=== PATIENT | female | born 1980 | race Caucasian/White ===

== ENCOUNTER 2019-11-27 11:33 | Outpatient (CLI) | payer OTHER, SELFPAY ==
--- NOTE | ~2019-11-27 | MM_ITS ---
EXAMINATION: MM screening nitin BI w jluis HISTORY: Screening mammogram TECHNIQUE: Craniocaudal and mediolateral oblique 3-D tomosynthesis images were obtained and synthetic 2-D images were generated. CAD analysis was submitted and interpreted. COMPARISON: 10/19/2018 bilateral digital screening mammogram BREAST PARENCHYMAL COMPOSITION: The breasts are almost entirely fatty. FINDINGS: There is no evidence of suspicious mass, calcification, or architectural distortion to sugg est malignancy in either breast. There has been no suspicious interval change. IMPRESSION: 1. No mammographic evidence of malignancy. 2. Recommend routine screening mammography in one year. BI-RADS Category 1: Negative Reviewed, dictated and finalized at location A. [employer] ATTORNEY
== END 2019-11-27 11:34 | disposition home or self-care (01) ==
LOC: ANHIMG 11:36
PROVIDERS: PCP Nurse Practitioner Family; Visit Provider Nurse Practitioner Family
DX: Z12.31 Encounter for screening mammogram for malignant neoplasm of breast (principal)
CPT/HCPCS: 77063; 77067

== ENCOUNTER 2020-06-30 19:40 | Emergency (ER) | payer OTHER, SELFPAY ==
--- NOTE | ~2020-06-30 | XR_ITS ---
XR hand LT 2V DATE: 06/30/2020 20:21 INDICATION: Table fell on hand. Third through fifth metacarpal bruising, pain TECHNIQUE: 3 views COMPARISON: 02/17/2018 left wrist FINDINGS: No fracture or dislocation, periosteal reaction or bone destruction. IMPRESSION: Negative Reviewed, dictated and finalized at location A. IMPRESSION: Negative
[2020-06-30 19:46] VITALS: BP 141/91; PULSE 96; RESP 19; TEMP 36.4; O2SAT 98
--- NOTE | 2020-06-30 20:32 | ED.UPPEXIN ---
HPI - Extremity Injury (Upper) General Chief Complaint: Extremity Injury, Upper Stated Complaint: arm pain Time Seen by Provider: 06/30/20 20:22 History of Present Illness HPI narrative: She accidentally dropped a table leg onto her left hand. She has pain and swelling to the dorsum of the hand. She has not taken anything for the pain. No wound, weakness, numbness. Related Data Home Medications Medication Instructions Recorded Confirmed citalopram mg 06/30/20 divalproex [Depakote] PO 06/30/20 olanzapine [Zyprexa] mg 06/30/20 Allergies Allergy/AdvReac Type Severity Reaction Status Date / Time ibuprofen Allergy Unknown Unknown Verified 02/17/18 00:14 bupropion AdvReac Unknown dizzy, Verified 02/17/18 00:14 lightheaded red dye AdvReac Unknown Nausea and Unverified 02/17/18 00:14 Vomiting Review of Systems Review of Systems: All systems reviewed & are unremarkable except as noted in HPI and below PMFSH Past Medical History Medical History (Updated 07/01/20 @ 00:00 by Background Daemon) Depression Social History Social History Gender identity (if verbalized by the patient): Female Exam Const: General: no acute distress and alert Nutritional Appearance: obese Orientation/consciousness: patient oriented x3 HENMT: Head: normal to inspection Resp: Effort & Inspection: normal respiratory effort Cardio: Other: 2+ left radial pulse Skin: Other: bruising to the dorsum of the left hand Neuro: General: patient oriented x3 and moves all extremities Speech: normal speech Extrem: Other: Tenderness over left third metatarsal Course Vital Signs Vital signs: Vital Signs Temperature 36.4 C 06/30/20 19:46 Pulse Rate 96 06/30/20 19:46 Respiratory Rate 06/30/20 19:46 Blood Pressure 141/91 H 06/30/20 19:46 Pulse Oximetry 98 06/30/20 19:46 Temperature 36.4 C 06/30/20 19:46 Pulse Rate 80 06/30/20 21:28 Respiratory Rate 06/30/20 21:28 Blood Pressure 142/60 H 06/30/20 21:28 Pulse Oximetry 99 06/30/20 21:28 MDM - Extremity Injury (Upper) Differential Diagnosis Differential diagnosis: Likely fracture of hand and other (contusion) Imaging Data Radiologist's impression: ITS Impressions Hand X-Ray 06/30/20 20:43 IMPRESSION: Negative Discharge Plan Discharge Clinical Impression: Contusion of hand, left Patient Disposition: Home, Self-Care Condition: Stable Instructions: Antibiotic Form, Contusion in Adults (ED) Prescriptions: No Action citalopram 20 mg tablet RF: 0 divalproex [Depakote] 250 mg Tablet,Delayed Release (Dr/Ec) PO RF: 0 olanzapine [Zyprexa] 5 mg Tablet RF: 0 Follow-up/Referrals: LISA,GEORGE DRUMMOND [Primary Care Provider] - Discharge Date/Time: 06/30/20 21:30
[2020-06-30] MEDS: ACETAMINOPHEN 500 MG TABLET 1000 MG PO (21:07)
[2020-06-30] MEDS: KETOROLAC (*BKC) 60 MG/2 ML VIAL IM (21:08)
[2020-06-30 21:28] VITALS: BP 142/60; PULSE 80; RESP 20; O2SAT 99
== END 2020-06-30 21:30 | disposition home or self-care (01) ==
PROVIDERS: Emergency Provider Emergency Medicine; PCP Nurse Practitioner Family
DX: S60.222A Contusion of left hand, initial encounter (principal); F32.9 Major depressive disorder, single episode, unspecified; W20.8XXA Other cause of strike by thrown, projected or falling object, initial encounter
CPT/HCPCS: 73120; 96372; 99283; A9270; J1885

== ENCOUNTER 2021-01-26 23:05 | Emergency (ER) | payer OTHER, SELFPAY ==
[2021-01-26 23:02] VITALS: BP 136/88; PULSE 90; RESP 16; TEMP 36.4; O2SAT 99
--- NOTE | 2021-01-26 23:23 | ED.ANXIETY ---
HPI - Anxiety General Chief Complaint: Psychiatric Symptoms <Lynn Mandel MD - Last Filed: 01/27/21 01:41> Stated Complaint: od sleeping pills <Lynn Mandel MD - Last Filed: 01/27/21 01:41> Time Seen by Provider: 01/26/21 23:23 <Lynn Mandel MD - Last Filed: 01/27/21 01:41> Source: patient and EMS <Lynn Mandel MD - Last Filed: 01/27/21 01:41> Mode of arrival: EMS <Lynn Mandel MD - Last Filed: 01/27/21 01:41> Limitations: no limitations <Lynn Mandel MD - Last Filed: 01/27/21 01:41> History of Present Illness HPI narrative: Patient is a 40-year-old female with a history of asthma, anxiety who presents for evaluation of overdose. Patient states she took 500 mg of Depakote and 250 mg tablets of trazodone in an effort to end her life. She does acknowledge this is only slightly increased amount from the amount she is typically prescribed. She states she has been feeling suicidal and depressed due to a poor relationship with her significant other. She states that she does not have any money, has no job and her only reason to live is her daughter. She denies any physical abuse. She denies any sexual assault. Patient is very tearful and anxious in her room. She took the medications approximately 2 hours prior to arrival. <Lynn Mandel MD - Last Filed: 01/27/21 01:41> Related Data Home Medications: Home Medications Medication Instructions Recorded Confirmed benztropine 1 mg tablet 1 mg PO BID tablet 01/04/21 01/04/21 citalopram 20 mg tablet 20 mg PO DAILY tablet 01/04/21 01/04/21 divalproex 500 mg tablet,extended 2,000 mg PO QPM tablet 01/04/21 01/04/21 release 24 hr duloxetine 20 mg capsule,delayed 20 mg PO DAILY cap 01/04/21 01/04/21 release olanzapine 10 mg tablet 10 mg PO QPM tablet 01/04/21 01/04/21 trazodone 100 mg tablet 100 mg PO DAILY tablet 01/04/21 01/04/21 <Lynn Mandel MD - Last Filed: 01/27/21 01:41> Allergies/Adverse Reactions: Allergies Allergy/AdvReac Type Severity Reaction Status Date / Time ibuprofen Allergy Unknown Unknown Verified 01/26/21 23:15 bupropion AdvReac Unknown dizzy, Verified 01/26/21 23:15 lightheaded red dye AdvReac Unknown Nausea and Verified 01/26/21 23:15 Vomiting naproxen AdvReac Unknown Verified 01/26/21 23:15 <Lynn Mandel MD - Last Filed: 01/27/21 01:41> Review of Systems Review of Systems: Narrative: CONSTITUTIONAL: Denies fever, chills, or sweats. CARDIOVASCULAR: Denies chest pain RESPIRATORY: Denies cough or dyspnea. GASTROINTESTINAL: Denies abdominal pain, nausea, vomiting, or diarrhea. GENITOURINARY: Denies dysuria or hematuria. SKIN: Denies rash or itching. MUSCULOSKELETAL: Denies back pain, joint pain, or myalgia. NEUROLOGIC: Denies headache, numbness, or weakness. PSYCHIATRIC: Reports anxiety and depression <Lynn Mandel MD - Last Filed: 01/27/21 01:41> [facility] Past Medical History Medical History: Medical History (Updated 01/27/21 @ 05:34 by Natalee Ibrahim MD) Bipolar disorder, unspecified Depression Mixed hyperlipidemia due to type 2 diabetes mellitus Type 2 diabetes mellitus without complications Patient was diagnosed in 2019. <Lynn Mandel MD - Last Filed: 01/27/21 01:41> Family History Family History: Family History (Updated 01/04/21 @ 14:17 by Eliana Cruz) Other Asthma Depression Diabetes mellitus <Lynn Mandel MD - Last Filed: 01/27/21 01:41> Social History Social History: Social History Smoking packs per day: 0.5 Smoking cigarettes per day: 10.0 Years smoked: 10 Smoking pack-years: 5.00 Smoking status: Current every day smoker Tobacco type: cigarettes Alcohol intake: never Substance use: never Substance use type: does not use Gender identity (if verbalized by the patient): Female <Lynn Mandel MD
--- NOTE | 2021-01-27 00:34 | ECG_ITS ---
Measurements Intervals [place] Rate: 80 P: 31 WV: 171 QRS: 71 QRSD: 85 T: 71 QT: 371 QTc: 429 Interpretive Statements SINUS RHYTHM BASELINE ARTIFACT- I, III, AVL NORMAL ECG Electronically Signed On 01-27-2021 6:56:42 CDT by Dave Krause D.O.
--- NOTE | 2021-01-27 01:00 | PC.NURSE ---
Late entry: 01/27/21 0100 ED Physician requesting that pt have a sitter due to suicidal comments pt made to EDP. Pt denies SI to RN. Suicide Observation Flow Sheet filled out and initiated at 0100 by RN and sitter starts documentation at 0115. Pt's medications removed from room and pt in a hospital gown. Room is stripped of removable items and cords. Pt is cooperative, tearful, and with rambling conversation.
[2021-01-27 01:14] LABS: Basophils Absolute Auto 0.1 K/mm3 (0.0-0.1); Basophils Percent Auto 0.6 % (0.2-1.2); Eosinophils Absolute Auto 0.3 K/mm3 (0-0.3); Eosinophils Percent Auto 2.4 % (0-4.4); Hematocrit 48.2 % (37.0-47.0); Hemoglobin 16.5 g/dL (12.0-15.0); Immature Granulocyte Absolute 0.03 K/mm3 (0.00-0.031); Immature Granulocyte Percent A 0.3 % (0-0.5); Lymphocytes Absolute Auto 3.66 K/mm3 (0.9-3.2); Lymphocytes Percent Auto 32.8 % (18.3-44.2); Mean Corpuscular HGB Conc 34.2 g/dl (32-36); Mean Corpuscular Hemoglobin 31.8 pg (26-34); Mean Corpuscular Volume 92.9 fl (80-100); Mean Platelet Volume 9.9 fl (7.4-10.4); Monocytes Absolute Auto 0.8 K/mm3 (0.1-0.6); Monocytes Percent Auto 6.8 % (2.6-8.5); Neutrophils Absolute Auto 6.4 K/mm3 (1.3-6.7); Neutrophils Percent Auto 57.1 % (45.5-73.1); Platelet Count Result 350 k/mm3 (150-375); Red Blood Count 5.19 M/mm3 (4.2-5.4); Red Cell Distribution Width 11.9 % (11.5-14.5); White Blood Count 11.2 K/mm3 (4.5-10.0)
[2021-01-27 01:41] LABS: Alanine Aminotransferase 23 U/L (4-35); Albumin Level 4.9 g/dL (3.5-5.1); Alkaline Phosphatase 67 U/L (38-126); Anion Gap 10 mmol/L (8-16); Aspartate Amino Transferase 30 U/L (14-36); Bilirubin,Total 0.6 mg/dL (0.2-1.3); Blood Urea Nitrogen 11 mg/dL (7-17); Calcium 9.6 mg/dL (8.4-10.2); Carbon Dioxide 29 mmol/L (22-30); Chloride 101 mmol/L (98-107); Estimated CRCL calculation 185 ml/min; Estimated Glomerular Filt Rate > 60; Glucose 149 mg/dL (65-105); Potassium 4.5 mmol/L (3.4-5.0); Sodium 140 mmol/L (137-145)
[2021-01-27 02:03] LABS: Add Urine Microscopic? YES; Appearance Urine Clear (Clear); Bilirubin Urine Negative (Negative); Blood Urine Negative (Negative); Color Urine Yellow (Yellow); Glucose Urine UA Negative (Negative); Ketones Urine 1+ mg/dL (Negative); Leukocyte Esterase Ur Negative LEU/UL (Negative); Mucus Urine Rare /lpf; Nitrate Urine Negative (Negative); Protein Urine 2+ mg/dL (Negative); RBC Urine 0-2 /hpf (0-2); Specific Grav Ur 1.018 (1.001-1.035); Squamous Epithelial Cell Urine Few /hpf (Few); Urobilinogen Urine Negative mg/dL (<2.0); WBC Urine 0-3 /hpf
--- NOTE | 2021-01-27 02:05 | PC.NURSE ---
Pt continues to deny having thoughts of harming self or others. Pt cooperative. Sitter continues to be at beside.
[2021-01-27 02:15] LABS: Benzodiazepines Screen Urine Negative (Negative)
[2021-01-27 02:18] LABS: Amphetamine Screen Urine Negative (Negative); Cannabinoid Screen Urine Negative (Negative); Cocaine Screen Urine Negative (Negative); Methadone Screen Urine Negative (Negative); Opiate Screen Urine Negative (Negative); Phencyclidine Screen Urine Negative (Negative)
[2021-01-27 02:24] LABS: Barbiturate Screen Urine Negative (Negative)
--- NOTE | 2021-01-27 03:42 | PC.NURSE ---
0330 Coin Machine Operator at bedside interviewing pt.
--- NOTE | 2021-01-27 04:07 | PC.NURSE ---
mold release worker is complete with her evaluation.
[2021-01-27 05:00] VITALS: BP 132/78; PULSE 80; RESP 16; O2SAT 98
--- NOTE | 2021-01-27 05:11 | PC.NURSE ---
1:1 observation continues. Pt remains calm and cooperative. Pt continues to deny having thoughts of harming self or others.
[2021-01-27 05:45] VITALS: BP 132/68; PULSE 88; RESP 18; O2SAT 98
== END 2021-01-27 05:37 | disposition home or self-care (01) ==
PROVIDERS: Emergency Provider Emergency Medicine; PCP Internal Medicine
DX: F31.9 Bipolar disorder, unspecified (principal); E78.2 Mixed hyperlipidemia; E11.9 Type 2 diabetes mellitus without complications; F17.210 Nicotine dependence, cigarettes, uncomplicated
CPT/HCPCS: 36415; 80053; 80307; 81001; 81025; 85025; 93005; 99284

== ENCOUNTER 2021-03-26 20:34 | Emergency (ER) | payer OTHER, SELFPAY ==
[2021-03-26 20:38] VITALS: BP 149/112; PULSE 121; RESP 24; TEMP 36.7; O2SAT 96
--- NOTE | 2021-03-26 21:38 | ED.GENADULT ---
HPI - General Adult General Chief complaint: Altered Mental Status Stated complaint: altered mental status Time Seen by Provider: 03/26/21 20:47 History of Present Illness HPI narrative: Patient is a 40-year-old female who presents ER with psychiatric symptoms. Patient has known history of bipolar disorder. Apparently patient was at [facility] earlier in the day and had been released due to inability to find a bed. [place]. She has nonsensical thought but is oriented x3. She does not report any thoughts of harm to herself or others. She has difficulty answering questions about medications that she is taking or whether she has actually been taking them. She denies any mental health history herself. Related Data Home Medications Medication Instructions Recorded Confirmed benztropine 1 mg tablet 1 mg PO BID tablet 01/04/21 01/04/21 citalopram 20 mg tablet 20 mg PO DAILY tablet 01/04/21 01/04/21 divalproex 500 mg tablet,extended 2,000 mg PO QPM tablet 01/04/21 01/04/21 release 24 hr duloxetine 20 mg capsule,delayed 20 mg PO DAILY cap 01/04/21 01/04/21 release olanzapine 10 mg tablet 10 mg PO QPM tablet 01/04/21 01/04/21 trazodone 100 mg tablet 100 mg PO DAILY tablet 01/04/21 01/04/21 Allergies Allergy/AdvReac Type Severity Reaction Status Date / Time ibuprofen Allergy Unknown Unknown Verified 03/26/21 20:35 bupropion AdvReac Unknown dizzy, Verified 03/26/21 20:35 lightheaded red dye AdvReac Unknown Nausea and Verified 03/26/21 20:35 Vomiting naproxen AdvReac Unknown Verified 03/26/21 20:35 Review of Systems Review of Systems: ROS unobtainable: Yes unobtainable due to mental status PMFSH Past Medical History Medical History (Updated 03/27/21 @ 05:30 by Antonio Looney MD) Bipolar disorder, unspecified Depression H/O borderline personality disorder History of posttraumatic stress disorder (PTSD) Mixed hyperlipidemia due to type 2 diabetes mellitus Type 2 diabetes mellitus without complications Patient was diagnosed in 2019. Surgical History Surgical History (Updated 03/26/21 @ 21:40 by Antonio Looney MD) No pertinent past surgical history Family History Family History (Updated 01/04/21 @ 14:17 by Eliana Cruz) Other Asthma Depression Diabetes mellitus Social History Social History Smoking packs per day: 0.5 Smoking cigarettes per day: 10.0 Years smoked: 10 Smoking pack-years: 5.00 Smoking status: Current every day smoker Tobacco type: cigarettes Alcohol intake: never Substance use: never Substance use type: prescription drug Gender identity (if verbalized by the patient): Female Exam Narrative: Exam Narrative: GENERAL: Well-appearing, well-nourished, and in no acute distress. HEAD: Normocephalic, atraumatic. ENT: Mucous membranes moist. CHEST: Clear to auscultation. No respiratory distress. HEART: Tachycardic and regular. Normal peripheral pulses. ABDOMEN: Soft, nontender, nondistended. EXTREMITIES: Normal range of motion. No edema. SKIN: Warm, dry, no rash. NEURO: Alert and oriented x3. PSYCH: Pressured speech with scattered flight of ideas. Has paranoia regarding her daughter and being kidnapped. No SI/HI. Course Course Emergency Course: Patient given haldol and ativan for aggitation. Evaluated by CRISIS. Accepted to [place] by Dr. Hays. Vital Signs Vital signs: Vital Signs Temperature 98.0 F 03/26/21 20:38 Pulse Rate 121 H 03/26/21 20:38 Respiratory Rate 24 H 03/26/21 20:38 Blood Pressure 149/112 H 03/26/21 20:38 Pulse Oximetry 96 03/26/21 20:38 Temperature 98.1 F 03/27/21 05:04 Pulse Rate 95 03/27/21 05:04 Respiratory Rate 14 03/27/21 05:04 Blood Pressure 118/74 03/27/21 05:04 Pulse Oximetry 100 03/27/21 05:04 Medical Decision Making Vital Signs V
[2021-03-26 21:39] LABS: Hematocrit 43.5 % (37.0-47.0); Hemoglobin 15.2 g/dL (12.0-15.0); Mean Corpuscular HGB Conc 34.9 g/dl (32-36); Mean Corpuscular Hemoglobin 31.9 pg (26-34); Mean Corpuscular Volume 91.4 fl (80-100); Mean Platelet Volume 9.7 fl (7.4-10.4); Platelet Count Result 349 k/mm3 (150-375); Red Blood Count 4.76 M/mm3 (4.2-5.4); Red Cell Distribution Width 11.6 % (11.5-14.5)
[2021-03-26 21:49] LABS: Alanine Aminotransferase 29 U/L (4-35); Albumin Level 4.5 g/dL (3.5-5.1); Alkaline Phosphatase 81 U/L (38-126); Anion Gap 8 mmol/L (8-16); Aspartate Amino Transferase 26 U/L (14-36); Bilirubin,Total 0.3 mg/dL (0.2-1.3); Blood Urea Nitrogen 10 mg/dL (7-17); Calcium 9.8 mg/dL (8.4-10.2); Carbon Dioxide 27 mmol/L (22-30); Chloride 102 mmol/L (98-107); Estimated CRCL calculation 174 ml/min; Estimated Glomerular Filt Rate > 60; Glucose 187 mg/dL (65-105); Potassium 4.5 mmol/L (3.4-5.0); Sodium 137 mmol/L (137-145)
[2021-03-26 21:50] LABS: Ethanol < 10 mg/dL (<10)
--- NOTE | 2021-03-26 22:20 | PC.NURSE ---
Pt unreliable - sitter at bedside. Pt arrives c EMS from home. per EMS, PD called for welfare check and found pt speaking nonsensically, concerned for safety, and pt brought to ED for psych eval. On arrival, pt refused to cooperate and had flight of ideas including: thought the officer was her ; her name was xenia queen; her daughter was kidnapped; her was confused and in the waiting room. Pt also echos other people, repeating names. for example, this RN stated that her name was Lolly, and pt repeated My name is Lolly. Pt alternates between tearful and laughing. changed into scrubs and belongings secured by recycling tech.
[2021-03-26 22:21] LABS: Thyroid Stimulating Hormone 0.708 uIU/mL (0.465-4.680)
[2021-03-26] MEDS: LORazepam (*CRX) 1 MG TABLET PO (23:30)
[2021-03-26 23:37] LABS: EDCOVIDSCREEN Negative (Negative)
--- NOTE | 2021-03-27 00:01 | PC.NURSE ---
Patient walked down to bathroom, patient still has rambling speech/flight of ideas. Very much awake an restless
[2021-03-27] MEDS: HALOPERIDOL LACTATE 5 MG/ML VIAL IM (00:08)
[2021-03-27 00:50] LABS: Add Urine Microscopic? NO; Appearance Urine Clear (Clear); Bilirubin Urine Negative (Negative); Blood Urine Negative (Negative); Color Urine Yellow (Yellow); Glucose Urine UA Negative (Negative); Ketones Urine Negative (Negative); Leukocyte Esterase Ur Negative LEU/UL (Negative); Nitrate Urine Negative (Negative); Protein Urine Negative (Negative); Specific Grav Ur 1.009 (1.001-1.035); Urobilinogen Urine Negative mg/dL (<2.0)
[2021-03-27 01:08] LABS: Amphetamine Screen Urine Negative (Negative); Barbiturate Screen Urine Negative (Negative); Benzodiazepines Screen Urine Negative (Negative); Cannabinoid Screen Urine Negative (Negative); Cocaine Screen Urine Negative (Negative); Methadone Screen Urine Negative (Negative); Opiate Screen Urine Negative (Negative); Phencyclidine Screen Urine Negative (Negative)
--- NOTE | 2021-03-27 01:48 | PC.NURSE ---
PT MEDICALLY CLEARED AT THIS TIME PER ERP DR LOWE. PLEASE CONTACT CRISIS FOR EVALUATION.
[2021-03-27 05:04] VITALS: BP 118/74; PULSE 95; RESP 14; TEMP 36.7; O2SAT 100
--- NOTE | 2021-03-27 06:01 | PC.NURSE ---
Farheen from [facility] called with bed for patient....[id number]. Called [facility] to transport patient to [facility]. ETA [id number]. Trip #[id number]
--- NOTE | 2021-03-27 06:21 | PC.NURSE ---
blood glucose 156
[2021-03-27 06:23] LABS: Glucose Point of Care 156 mg/dl (65-105)
--- NOTE | 2021-03-27 06:40 | PC.NURSE ---
REPORT CALLED TO RITU AT [facility]. TRANSPORT HAS BEEN CALLED WITH TENTATIVE BUSH REGENERATOR TIME OF [address] DIET ORDER [address]ACED
[2021-03-27] MEDS: metFORMIN HCL 500 MG TABLET 1000 MG PO (07:27)
== END 2021-03-27 08:15 ==
PROVIDERS: Emergency Provider Emergency Medicine; PCP Internal Medicine
DX: F29 Unspecified psychosis not due to a substance or known physiological condition (principal); Z20.822 Contact with and (suspected) exposure to COVID-19; F31.9 Bipolar disorder, unspecified; F60.3 Borderline personality disorder; F43.10 Post-traumatic stress disorder, unspecified; E78.2 Mixed hyperlipidemia; E11.9 Type 2 diabetes mellitus without complications; F17.210 Nicotine dependence, cigarettes, uncomplicated; Z79.84 Long term (current) use of oral hypoglycemic drugs
CPT/HCPCS: 36415; 80053; 80307; 81003; 81025; 82948; 84443; 85025; 87426; 96372; 99285; A9270; C9803; J1630

== ENCOUNTER 2021-10-11 10:45 | Emergency (ER) | payer OTHER, SELFPAY ==
--- NOTE | ~2021-10-11 | XR_ITS ---
EXAMINATION: XR ankle LT min 3V EXAM DATE: 10/11/2021 11:58 INDICATION: Initial encounter following injury, with pain of the left ankle. TECHNIQUE: Left ankle frontal, lateral and oblique projections obtained and reviewed. Comparison is m emmanuel to prior examination from 02/17/2018. FINDINGS: The left ankle mortise appears intact. There are no acute fractures or dislocations ident ified. There is no subcutaneous gas. The soft tissue is unremarkable. There are no radiopaque for eign bodies. IMPRESSION: No acute osseous findings. Reviewed, dictated and finalized at location B. GER TAX IMPRESSION: No acute osseous findings.
--- NOTE | ~2021-10-11 | XR_ITS ---
EXAMINATION: XR knee LT min 4V EXAM DATE: 10/11/2021 11:58 INDICATION: Initial encounter following injury, with pain of the left knee. TECHNIQUE: Left knee frontal, crosstable lateral, orthogonal oblique projections for interpretation. There is no prior study for comparison. FINDINGS: No evidence osteochondral defect or joint body in the left knee joint. There are no acute fractures or dislocations identified. There is no subcutaneous gas. Trace joint fluid. There are no radiopaque foreign bodies. IMPRESSION: No acute osseous findings. Reviewed, dictated and finalized at location B. GER CRISIS IMPRESSION: No acute osseous findings.
[2021-10-11 11:37] VITALS: BP 172/88; PULSE 88; RESP 18; TEMP 36.7; O2SAT 100
--- NOTE | 2021-10-11 13:20 | PC.NURSE ---
Pt states that her dogs leashed got caught in the chair and caused her to fall, pt presents with left knee pain and bruising, pt able to move toes, cap refill less than 3sec, pt states 3 yrs ago she tore her meniscus in the naldo leg,
[2021-10-11] MEDS: ORPHENADRINE CITRATE 100 MG TABLET.ER PO (15:34)
--- NOTE | 2021-10-11 15:34 | ED.GENADULT ---
HPI - General Adult General Chief complaint: Extremity Injury, Lower Stated complaint: L Knee Pain Time Seen by Provider: 10/11/21 13:54 Source: patient Mode of arrival: wheelchair Limitations: no limitations History of Present Illness HPI narrative: Patient is a 40-year-old female with chief complaint of left knee pain over the anterior and posterior aspect that began on Monday abdomen patient fell onto the left knee. Patient reports that she has been wearing a knee brace and applying ice without remittance of her symptoms. Patient reports that she feels a lot of tightness to the posterior aspect of the knee and has pain increased with flexion. Patient denies prior fracture or injury to the knee. 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 Patient denies any other areas of injury or concern. Patient denies chance of . Related Data Home Medications Medication Instructions Recorded Confirmed benztropine 1 mg tablet 1 mg PO BID tablet 01/04/21 01/04/21 citalopram 20 mg tablet 20 mg PO DAILY tablet 01/04/21 01/04/21 divalproex 500 mg tablet,extended 2,000 mg PO QPM tablet 01/04/21 01/04/21 release 24 hr duloxetine 20 mg capsule,delayed 20 mg PO DAILY cap 01/04/21 01/04/21 release olanzapine 10 mg tablet 10 mg PO QPM tablet 01/04/21 01/04/21 trazodone 100 mg tablet 100 mg PO DAILY tablet 01/04/21 01/04/21 oxcarbazepine 300 mg PO BID 03/27/21 risperidone 4 mg PO HS 03/27/21 Allergies Allergy/AdvReac Type Severity Reaction Status Date / Time ibuprofen Allergy Unknown Unknown Verified 03/26/21 20:35 bupropion AdvReac Unknown dizzy, Verified 03/26/21 20:35 lightheaded red dye AdvReac Unknown Nausea and Verified 03/26/21 20:35 Vomiting naproxen AdvReac Unknown Verified 03/26/21 20:35 Review of Systems Review of Systems: CONSTITUTIONAL: Denies fever, chills, or sweats. EYES: Denies visual changes, redness, or discharge. ENT: Denies rhinorrhea, congestion, sore throat, or otalgia. CARDIOVASCULAR: Denies chest pain, palpitations, or edema. RESPIRATORY: Denies cough or dyspnea. GASTROINTESTINAL: Denies abdominal pain, nausea, vomiting, or diarrhea. GENITOURINARY: Denies dysuria or hematuria. SKIN: Denies rash or itching. MUSCULOSKELETAL: Reports left knee pain denies back pain, joint pain, or myalgia. NEUROLOGIC: Denies headache, numbness, dizziness, or weakness. PSYCHIATRIC: Denies anxiety or depression. PMFSH Past Medical History Medical History (Updated 10/11/21 @ 16:00 by Hung Mccloud PA-C) Bipolar disorder, unspecified Depression H/O borderline personality disorder History of posttraumatic stress disorder (PTSD) Mixed hyperlipidemia due to type 2 diabetes mellitus Type 2 diabetes mellitus without complications Patient was diagnosed in 2019. Surgical History Surgical History (Updated 03/26/21 @ 21:40 by Antonio Looney MD) No pertinent past surgical history Family History Family History (Updated 01/04/21 @ 14:17 by Eliana Cruz) Other Asthma Depression Diabetes mellitus Social History Social History Smoking packs per day: 0.5 Smoking cigarettes per day: 10.0 Years smoked: 10 Smoking pack-years: 5.00 Smoking status: Current every day smoker Tobacco type: cigarettes Alcohol intake: never Substance use: never Substance use type: prescription drug Gender identity (if verbalized by the patient): Female Exam Narrative: GENERAL: Well-appearing, well-nourished, and in no acute distress. HEAD: Normocephalic, atraumatic. EYES: PERRLA and EOMI. CHEST: Clear to auscultation. No respiratory distress. No wheezes rales or rhonchi HEART: Regular rate and rhythm. No murmur heard. Normal peripheral pulses. EXTREMITIES: Decreased range of motion due to pain. Tightening and spasming to the posterior aspect of left knee. Bruising to the inferior aspect of anterior knee. SKIN: Warm, dry, no chang
--- NOTE | 2021-10-11 15:35 | PC.NURSE ---
barcode for norflex would not scan after multiple attempts. medication verified by two rns
== END 2021-10-11 16:13 | disposition home or self-care (01) ==
PROVIDERS: Emergency Provider Emergency Medicine
DX: S83.92XA Sprain of unspecified site of left knee, initial encounter (principal); E11.9 Type 2 diabetes mellitus without complications; F31.9 Bipolar disorder, unspecified; F60.3 Borderline personality disorder; F43.10 Post-traumatic stress disorder, unspecified; E78.2 Mixed hyperlipidemia; F17.210 Nicotine dependence, cigarettes, uncomplicated; W19.XXXA Unspecified fall, initial encounter; Z79.84 Long term (current) use of oral hypoglycemic drugs
CPT/HCPCS: 73564; 73610; 99284; A9270

== ENCOUNTER 2021-12-01 19:31 | Emergency (ER) | payer OTHER, SELFPAY ==
[2021-12-01 19:31] VITALS: BP 130/79; PULSE 97; RESP 22; TEMP 36.8; O2SAT 96
--- NOTE | 2021-12-01 19:52 | ED.ANXIETY ---
HPI - Anxiety General Chief Complaint: Anxiety Stated Complaint: anxiety Time Seen by Provider: 12/01/21 19:33 Source: patient Mode of arrival: EMS Limitations: no limitations History of Present Illness HPI narrative: 41-year-old with a history of bipolar disorder, anxiety was brought in from home by ambulance with anxiety attack. Patient was notified that she is diabetic by her primary doctor soon after she had a panic episode. She states that she sees Dr. Viveros next wk . she denies any chest pain , sob , suicidal ideation. MD complaint: anxiety Severity: mild Quality: constant Place: home History of similar episodes: Yes Provoking factors: emotional stress Relieving factors: nothing Exacerbating factors: nothing Related Data Home Medications Medication Instructions Recorded Confirmed benztropine 1 mg tablet 1 mg PO BID tablet 01/04/21 01/04/21 citalopram 20 mg tablet 20 mg PO DAILY tablet 01/04/21 01/04/21 divalproex 500 mg tablet,extended 2,000 mg PO QPM tablet 01/04/21 01/04/21 release 24 hr duloxetine 20 mg capsule,delayed 20 mg PO DAILY cap 01/04/21 01/04/21 release olanzapine 10 mg tablet 10 mg PO QPM tablet 01/04/21 01/04/21 trazodone 100 mg tablet 100 mg PO DAILY tablet 01/04/21 01/04/21 oxcarbazepine 300 mg PO BID 03/27/21 risperidone 4 mg PO HS 03/27/21 Allergies Allergy/AdvReac Type Severity Reaction Status Date / Time ibuprofen Allergy Unknown Unknown Verified 03/26/21 20:35 bupropion AdvReac Unknown dizzy, Verified 03/26/21 20:35 lightheaded red dye AdvReac Unknown Nausea and Verified 03/26/21 20:35 Vomiting haloperidol [From Haldol] AdvReac Unknown Verified 12/01/21 19:39 naproxen AdvReac Unknown Verified 03/26/21 20:35 Review of Systems Review of Systems: All systems reviewed & are unremarkable except as noted in HPI and below Constitutional: Constitutional: Reports no additional constitutional complaints Eyes: Eyes: Reports no additional eye complaints ENT: Reports system reviewed and no additional complaints, except as documented Cardiovascular: Cardiovascular: Reports no additional cardiovascular complaints Respiratory: Respiratory: Reports no additional respiratory complaints Gastrointestinal: Gastrointestinal: Reports no additional gastrointestinal complaints Musculoskeletal: Musculoskeletal: Reports no additional musculoskeletal complaints Neurologic: Reports system reviewed and no additional complaints, except as documented PMFSH Past Medical History Medical History Bipolar disorder, unspecified Depression H/O borderline personality disorder History of posttraumatic stress disorder (PTSD) Mixed hyperlipidemia due to type 2 diabetes mellitus Type 2 diabetes mellitus without complications Patient was diagnosed in 2019. Surgical History Surgical History No pertinent past surgical history Family History Family History Other Asthma Depression Diabetes mellitus Social History Social History Smoking packs per day: 0.5 Smoking cigarettes per day: 10.0 Years smoked: 10 Smoking pack-years: 5.00 Smoking status: Current every day smoker Tobacco type: cigarettes Alcohol intake: never Substance use: never Substance use type: prescription drug Gender identity (if verbalized by the patient): Female Exam Narrative: GENERAL: Well-appearing, well-nourished, and in no acute distress., crying HEAD: Normocephalic, atraumatic. EYES: PERRLA and EOMI. NECK: Supple. CHEST: Clear to auscultation. No respiratory distress. HEART: Regular rate and rhythm. No murmur heard. Normal peripheral pulses. ABDOMEN: Soft, nontender, , normal active bowel sounds. EXTREMITIES: Normal range of motion. No edema. SKIN: Warm, dry, no rash.
[2021-12-01] MEDS: LORazepam (*CRX) 1 MG TABLET PO (20:12)
== END 2021-12-01 20:17 | disposition home or self-care (01) ==
PROVIDERS: Emergency Provider Family Medicine; PCP Internal Medicine
DX: F41.9 Anxiety disorder, unspecified (principal); F17.210 Nicotine dependence, cigarettes, uncomplicated; F31.9 Bipolar disorder, unspecified; E11.9 Type 2 diabetes mellitus without complications
CPT/HCPCS: 99283; A9270

== ENCOUNTER 2022-05-26 11:25 | Outpatient (CLI) | payer OTHER, SELFPAY ==
[2022-05-26 12:02] LABS: Basophils Absolute Auto 0.1 K/mm3 (0.0-0.1); Basophils Percent Auto 0.8 % (0.2-1.2); Eosinophils Absolute Auto 0.2 K/mm3 (0-0.3); Eosinophils Percent Auto 1.8 % (0-4.4); Hematocrit 43.6 % (37.0-47.0); Hemoglobin 14.5 g/dL (12.0-15.0); Immature Granulocyte Absolute 0.05 K/mm3 (0.00-0.031); Immature Granulocyte Percent A 0.4 % (0-0.5); Lymphocytes Absolute Auto 2.91 K/mm3 (0.9-3.2); Lymphocytes Percent Auto 23.3 % (18.3-44.2); Mean Corpuscular HGB Conc 33.3 g/dl (32-36); Mean Corpuscular Hemoglobin 31.3 pg (26-34); Mean Platelet Volume 9.8 fl (7.4-10.4); Monocytes Absolute Auto 0.7 K/mm3 (0.1-0.6); Monocytes Percent Auto 5.3 % (2.6-8.5); Neutrophils Absolute Auto 8.5 K/mm3 (1.3-6.7); Neutrophils Percent Auto 68.4 % (45.5-73.1); Platelet Count Result 360 k/mm3 (150-375); Red Blood Count 4.64 M/mm3 (4.2-5.4); White Blood Count 12.5 K/mm3 (4.5-10.0)
[2022-05-26 12:38] LABS: Alanine Aminotransferase 31 U/L (6-35); Albumin Level 4.5 g/dL (3.5-5.1); Alkaline Phosphatase 98 U/L (38-126); Anion Gap 11 mmol/L (8-16); Aspartate Amino Transferase 33 U/L (14-36); Bilirubin,Total 0.4 mg/dL (0.2-1.3); Blood Urea Nitrogen 4 mg/dL (7-17); Calcium 9.7 mg/dL (8.4-10.2); Carbon Dioxide 24 mmol/L (22-30); Chloride 102 mmol/L (98-107); Cholesterol 137 mg/dL (0-200); Estimated Glomerular Filt Rate > 60; Glucose 233 mg/dL (65-110); HDL Direct 43 mg/dL; Potassium 4.6 mmol/L (3.4-5.0); Sodium 137 mmol/L (137-145); Triglycerides 134 mg/dL (<150)
[2022-05-26 12:43] LABS: Lithium 0.6 mmol/L (0.6-1.2)
[2022-05-26 12:49] LABS: LDL Cholesterol Direct 64 mg/dL
[2022-05-26 13:02] LABS: Creatinine Urine 65.3 mg/dL
[2022-05-26 13:05] LABS: MALB Creatinine Ratio 47.8 mg/g (0-30); Microalbumin Urine Random 31.2 mg/L (0-16.7)
[2022-05-26 13:18] LABS: Thyroid Stimulating Hormone Reflex 0.727 uIU/mL (0.465-4.68)
== END 2022-05-26 11:26 | disposition home or self-care (01) ==
LOC: ANHLAB 11:28
PROVIDERS: PCP Internal Medicine; Visit Provider Internal Medicine
DX: J30.81 Allergic rhinitis due to animal (cat) (dog) hair and dander (principal); E11.65 Type 2 diabetes mellitus with hyperglycemia; E78.5 Hyperlipidemia, unspecified; I10 Essential (primary) hypertension; K21.9 Gastro-esophageal reflux disease without esophagitis; Z51.81 Encounter for therapeutic drug level monitoring
CPT/HCPCS: 36415; 80053; 80061; 80178; 82043; 84443; 85025

== ENCOUNTER 2023-06-05 15:24 | Emergency (ER) | payer OTHER, SELFPAY ==
--- NOTE | ~2023-06-05 | XR_ITS ---
EXAMINATION: XR wrist LT min 3V, XR hand LT min 3V DATE: 06/05/2023 15:56 INDICATION: Left hand and wrist pain one week post fall TECHNIQUE: 1. Posteroanterior, ulnar deviation, oblique, and lateral views of the left wrist were obtained. 2. Dorsal palmar, oblique and lateral views of the left hand were obtained. COMPARISON: Left hand radiographs dated 06/30/2020 FINDINGS: Alignment of the hand and wrist is normal. No fracture identified. Minimal to mild osteoarthritis at a few of the distal interphalangeal joints. Chronic bone island at the distal radius. Soft tissues a re unremarkable. IMPRESSION: 1. No acute osseous abnormality at the left hand or wrist. Reviewed, dictated and finalized at location B. IMPRESSION: 1. No acute osseous abnormality at the left hand or wrist.
[2023-06-05 15:40] VITALS: BP 139/86; PULSE 107; RESP 16; TEMP 36.9; O2SAT 98
--- NOTE | 2023-06-05 15:54 | ED.UPPEXIN ---
HPI - Extremity Injury (Upper) General Chief Complaint: Extremity Injury, Upper Stated Complaint: Fell on left hand Time Seen by Provider: 06/05/23 15:45 Source: patient Mode of arrival: ambulatory Limitations: no limitations History of Present Illness HPI narrative: Moriah is a 42-year-old female patient presenting to the clinic today with complaints of left wrist and hand pain after falling out of her bed- 1 week ago. She reports that she is having a lot of pain to the lateral wrist and over the left 5th metacarpal. Has been wearing a Velcro wrist splint. States she has been taking Aleve for pain. Related Data Home Medications Medication Instructions Recorded Confirmed duloxetine 20 mg capsule,delayed 20 mg PO DAILY 01/04/21 06/05/23 release olanzapine 10 mg tablet 10 mg PO QPM 01/04/21 06/05/23 oxcarbazepine 300 mg tablet 300 mg PO BID 03/27/21 06/05/23 risperidone 4 mg tablet 4 mg PO HS 03/27/21 06/05/23 atorvastatin 20 mg tablet 20 mg PO DAILY 06/05/23 06/05/23 fluticasone propionate 50 50 mcg intranasal DAILY 06/05/23 06/05/23 mcg/actuation nasal spray,suspension gabapentin 100 mg capsule 100 mg PO DIRECTED 06/05/23 06/05/23 lithium carbonate 450 mg 900 mg PO DIRECTED 06/05/23 06/05/23 tablet,extended release losartan 25 mg tablet 25 mg PO DAILY 06/05/23 06/05/23 montelukast 10 mg tablet 10 mg PO DAILY 06/05/23 06/05/23 trazodone 150 mg tablet 150 mg PO DAILY 06/05/23 06/05/23 Allergies Allergy/AdvReac Type Severity Reaction Status Date / Time ibuprofen Allergy Unknown Unknown Verified 03/26/21 20:35 bupropion AdvReac Unknown dizzy, Verified 03/26/21 20:35 lightheaded red dye AdvReac Unknown Nausea and Verified 03/26/21 20:35 Vomiting haloperidol [From Haldol] AdvReac Unknown Verified 12/01/21 19:39 naproxen AdvReac Unknown Verified 03/26/21 20:35 Review of Systems Review of Systems: Pertinent positives per HPI. Patient denies any fever, chills, rash, headache, visual changes, dizziness, cough, runny nose, sore throat, shortness of breath, chest pain, palpitations, nausea, vomiting, diarrhea, constipation, abdominal pain, or any urinary issues. [facility] Past Medical History Medical History Bipolar disorder, unspecified Depression H/O borderline personality disorder History of posttraumatic stress disorder (PTSD) Mixed hyperlipidemia due to type 2 diabetes mellitus Type 2 diabetes mellitus without complications Patient was diagnosed in 2019. Surgical History Surgical History No pertinent past surgical history Family History Family History Other Asthma Depression Diabetes mellitus Social History Social History Smoking packs per day: 0.5 Smoking cigarettes per day: 10.0 Years smoked: 10 Smoking pack-years: 5.00 Smoking status: Current every day smoker Tobacco type: cigarettes Alcohol intake: never Substance use: never Substance use type: prescription drug Gender identity (if verbalized by the patient): Female Comments At the time of my signature, I reviewed and agree with the nursing past medical, surgical, social, and family history. There is no relevant family history pertinent to the patient complaint. Exam Narrative: General: Well-developed, well nourished, in no apparent distress Head: Normocephalic, atraumatic. Cardio: Regular rate and rhythm, s1 and s2 normal, no murmur appreciated. Resp: Clear to auscultation bilaterally, no rhonchi, rales, wheezing or rubs. Musculoskeletal: No deformity, tender to palpation over the lateral left wrist and over the 5th metacarpal and 5th phalanx, limited range of motion due to pain, weak left hand tipple mechanic due to pain, grossly normal range of motion, muscle s
== END 2023-06-05 16:10 | disposition home or self-care (01) ==
PROVIDERS: Emergency Provider Nurse Practitioner Family; PCP Internal Medicine
DX: S63.92XA Sprain of unspecified part of left wrist and hand, initial encounter (principal); S63.502A Unspecified sprain of left wrist, initial encounter; W06.XXXA Fall from bed, initial encounter; F17.210 Nicotine dependence, cigarettes, uncomplicated; E78.2 Mixed hyperlipidemia; E11.9 Type 2 diabetes mellitus without complications; F31.9 Bipolar disorder, unspecified; F43.10 Post-traumatic stress disorder, unspecified
CPT/HCPCS: 73110; 73130; 99213; A4565; G0463

== ENCOUNTER 2023-09-28 08:40 | Emergency (ER) | payer OTHER, SELFPAY ==
--- NOTE | ~2023-09-28 | XR_ITS ---
XR knee LT 3V 09/28/2023 09:13 Indication: Left knee pain Procedure: 3 views left knee Comparison: 10/11/2021 Findings: Mild osteoarthritis of the left knee. No fracture, subluxation or dislocation. No significa nt joint effusion. No foreign body. Impression: 1: No acute fracture. Reviewed, dictated and finalized at location L. UITING TEAM LEAD Impression: 1: No acute fracture.
--- NOTE | 2023-09-28 08:43 | ED.LOWEXIN ---
HPI - Extremity Injury (Lower) General Chief Complaint: Extremity Injury, Lower Stated Complaint: Injured knee Time Seen by Provider: 09/28/23 08:49 Source: patient, RN notes reviewed and old records reviewed Mode of arrival: ambulatory Limitations: no limitations History of Present Illness HPI Narrative: 42-year-old female presents to the [facility] with complaints left knee pain. HX of knee injury 3 years ago, reports it did get better with no further treatment. Patient reports that on Monday she was walking and slipped on some leaves. Took ibuprofen, currently wearing a knee brace. Onset (ago): day(s) (3) Treatments prior to arrival: NSAIDS and other (Brace) Related Data Home Medications Medication Instructions Recorded Confirmed duloxetine 20 mg capsule,delayed 20 mg PO DAILY 01/04/21 09/28/23 release olanzapine 10 mg tablet 10 mg PO QPM 01/04/21 09/28/23 atorvastatin 20 mg tablet 20 mg PO DAILY 06/05/23 09/28/23 fluticasone propionate 50 50 mcg intranasal DAILY 06/05/23 09/28/23 mcg/actuation nasal spray,suspension gabapentin 100 mg capsule 100 mg PO DIRECTED 06/05/23 09/28/23 lithium carbonate 450 mg 900 mg PO DIRECTED 06/05/23 09/28/23 tablet,extended release montelukast 10 mg tablet 10 mg PO DAILY 06/05/23 09/28/23 trazodone 150 mg tablet 150 mg PO DAILY 06/05/23 09/28/23 empagliflozin 10 mg tablet 10 mg PO DAILY 09/28/23 09/28/23 (Jardiance) Allergies Allergy/AdvReac Type Severity Reaction Status Date / Time ibuprofen Allergy Unknown Unknown Verified 09/28/23 08:51 bupropion AdvReac Unknown dizzy, Verified 09/28/23 08:51 lightheaded red dye AdvReac Unknown Nausea and Verified 09/28/23 08:51 Vomiting haloperidol [From Haldol] AdvReac Unknown Verified 09/28/23 08:51 naproxen AdvReac Unknown Verified 09/28/23 08:51 Review of Systems Review of Systems: All systems reviewed & are unremarkable except as noted in HPI and below Constitutional: Constitutional: Reports no additional constitutional complaints Eyes: Eyes: Reports no additional eye complaints ENT: Reports system reviewed and no additional complaints, except as documented Cardiovascular: Cardiovascular: Reports no additional cardiovascular complaints, Denies chest pain and Denies dyspnea Respiratory: Respiratory: Reports no additional respiratory complaints, Denies chest congestion, Denies cough and Denies dyspnea Gastrointestinal: Gastrointestinal: Reports no additional gastrointestinal complaints, Denies abdominal pain, Denies nausea and Denies vomiting Musculoskeletal: Musculoskeletal: Reports as per HPI, Reports arthralgias and Reports joint swelling Integumentary/Breasts: Skin/Breast: Reports system reviewed and no additional complaints, except as docu Neurologic: Reports system reviewed and no additional complaints, except as documented Psychiatric: Psychiatric: Reports no additional psychiatric complaints Allergic/Immunologic: Allergic/Immunologic: Reports no additional allergic/immunologic complaints [facility] Past Medical History Medical History Bipolar disorder, unspecified Depression H/O borderline personality disorder History of posttraumatic stress disorder (PTSD) Mixed hyperlipidemia due to type 2 diabetes mellitus Type 2 diabetes mellitus without complications Patient was diagnosed in 2019. Surgical History Surgical History No pertinent past surgical history Family History Family History Other Asthma Depression Diabetes mellitus Social History Social History Smoking packs per day: 0.5 Smoking cigarettes per day: 10.0 Years smoked: 10 Smoking pack-years: 5.00 Smoking status: Current every day smoker Tobacco type: cigarettes Alcohol intake: never Substance u
[2023-09-28 08:55] VITALS: BP 133/94; PULSE 88; RESP 16; TEMP 37.2; O2SAT 98
== END 2023-09-28 09:27 | disposition home or self-care (01) ==
PROVIDERS: Emergency Provider Nurse Practitioner; PCP Internal Medicine
DX: S83.92XA Sprain of unspecified site of left knee, initial encounter (principal); W18.40XA Slipping, tripping and stumbling without falling, unspecified, initial encounter; E78.2 Mixed hyperlipidemia; E11.9 Type 2 diabetes mellitus without complications; Z79.84 Long term (current) use of oral hypoglycemic drugs; F31.9 Bipolar disorder, unspecified; F43.10 Post-traumatic stress disorder, unspecified; F17.210 Nicotine dependence, cigarettes, uncomplicated
CPT/HCPCS: 73562; 99213; G0463

== ENCOUNTER 2023-11-18 09:44 | Emergency (ER) | payer OTHER, SELFPAY ==
--- NOTE | ~2023-11-18 | XR_ITS ---
XR wrist LT min 3V DATE: 11/18/2023 10:17 INDICATION: Left wrist pain for one week. TECHNIQUE: 4 views COMPARISON: None FINDINGS: No fracture or dislocation, periosteal reaction or bone destruction, joint space narrowing, erosive change or chondrocalcinosis. IMPRESSION: Negative Reviewed, dictated and finalized at location A. MACEUTICAL COMPOUNDING SUPERVISOR IMPRESSION: Negative
[2023-11-18 09:44] VITALS: BP 168/93; PULSE 94; RESP 18; TEMP 36.1; O2SAT 99
--- NOTE | 2023-11-18 09:53 | ED.GENADULT ---
HPI - General Adult General Chief complaint: Extremity Injury, Upper Stated complaint: left arm pain Time Seen by Provider: 11/18/23 09:49 Source: patient Mode of arrival: ambulatory Limitations: no limitations History of Present Illness HPI narrative: this is a 43-year-old female who presents to the ED with chief complaint of left wrist pain following an injury that occurred 1 week ago. Reports that she accidentally slammed and a drawer. She has been trying to treat with ibuprofen and [id number] splint but still experiencing pain. Denies numbness, weakness or any further sites of pain or injury. Related Data Home Medications Medication Instructions Recorded Confirmed duloxetine 20 mg capsule,delayed 20 mg PO DAILY 01/04/21 09/28/23 release olanzapine 10 mg tablet 10 mg PO QPM 01/04/21 09/28/23 atorvastatin 20 mg tablet 20 mg PO DAILY 06/05/23 09/28/23 fluticasone propionate 50 50 mcg intranasal DAILY 06/05/23 09/28/23 mcg/actuation nasal spray,suspension gabapentin 100 mg capsule 100 mg PO DIRECTED 06/05/23 09/28/23 lithium carbonate 450 mg 900 mg PO DIRECTED 06/05/23 09/28/23 tablet,extended release montelukast 10 mg tablet 10 mg PO DAILY 06/05/23 09/28/23 trazodone 150 mg tablet 150 mg PO DAILY 06/05/23 09/28/23 empagliflozin 10 mg tablet 10 mg PO DAILY 09/28/23 09/28/23 (Jardiance) Allergies Allergy/AdvReac Type Severity Reaction Status Date / Time ibuprofen Allergy Unknown Unknown Verified 11/18/23 09:53 bupropion AdvReac Unknown dizzy, Verified 11/18/23 09:53 lightheaded red dye AdvReac Unknown Nausea and Verified 11/18/23 09:53 Vomiting haloperidol [From Haldol] AdvReac Unknown Verified 11/18/23 09:53 naproxen AdvReac Unknown Verified 11/18/23 09:53 Review of Systems Review of Systems: All systems as dictated in [facility] Past Medical History Medical History Bipolar disorder, unspecified Depression H/O borderline personality disorder History of posttraumatic stress disorder (PTSD) Mixed hyperlipidemia due to type 2 diabetes mellitus Type 2 diabetes mellitus without complications Patient was diagnosed in 2019. Surgical History Surgical History No pertinent past surgical history Family History Family History Other Asthma Depression Diabetes mellitus Social History Social History Smoking packs per day: 0.5 Smoking cigarettes per day: 10.0 Years smoked: 10 Smoking pack-years: 5.00 Smoking status: Current every day smoker Tobacco type: cigarettes Alcohol intake: never Substance use: never Substance use type: prescription drug Gender identity (if verbalized by the patient): Female Exam Narrative: GENERAL: Well-appearing, well-nourished, and in no acute distress. HEAD: Normocephalic, atraumatic. EYES: PERRLA and EOMI. ENT: Nares clear, no rhinorrhea or epistaxis. Mucous membranes moist. Oropharynx without tonsillar hypertrophy exudate or other lesions. NECK: Supple. No adenopathy or masses. CHEST: No respiratory distress. Clear to auscultation. No wheezes rales or rhonchi HEART: Regular rate and rhythm. No murmur heard. Normal peripheral pulses. ABDOMEN: Soft, nontender, nondistended, normal active bowel sounds. MSK: moderate tenderness throughout the left wrist on the dorsal and volar surface.. No anatomical snuffbox tenderness. neurovascularly intact distally. Minimal bruising. Compartments soft SKIN: Warm, dry, no rash. NEURO: Alert and oriented x3. No focal deficits. PSYCH: Normal mood and affect. Course Vital Signs Vital signs: Vital Signs Temperature 97.0 F L 11/18/23 09:44 Pulse Rate 94 11/18/23 09:44 Respiratory Rate 18 11/18/23 09:44 Blood Pressure 168/93 H
[2023-11-18 10:43] VITALS: BP 130/85; PULSE 94; RESP 16; O2SAT 100
== END 2023-11-18 10:44 | disposition home or self-care (01) ==
PROVIDERS: Emergency Provider Physician Assistant; PCP Internal Medicine
DX: S63.502A Unspecified sprain of left wrist, initial encounter (principal); S66.912A Strain of unspecified muscle, fascia and tendon at wrist and hand level, left hand, initial encounter; E11.9 Type 2 diabetes mellitus without complications; E78.2 Mixed hyperlipidemia; F31.9 Bipolar disorder, unspecified; F43.10 Post-traumatic stress disorder, unspecified; F60.3 Borderline personality disorder; Z79.84 Long term (current) use of oral hypoglycemic drugs; W23.0XXA Caught, crushed, jammed, or pinched between moving objects, initial encounter; F17.210 Nicotine dependence, cigarettes, uncomplicated
CPT/HCPCS: 73110; 99283

== ENCOUNTER 2024-05-17 17:07 | Emergency (ER) | payer OTHER, SELFPAY ==
--- NOTE | ~2024-05-17 | XR_ITS ---
XR wrist LT min 3V Ordering provider: SHERLEY Carter History: . fell out of bed on outstretched hand 2 weeks ago, medial robby . Comparison: November 18, 2023 FINDINGS: BONES: No acute fracture or dislocation. No definite scaphoid fracture. JOINT SPACES: Well maintained. SOFT TISSUES: Normal. IMPRESSION: No acute osseous abnormality left wrist. Reviewed, dictated and finalized at location A.
[2024-05-17 17:18] VITALS: BP 143/74; PULSE 96; RESP 16; TEMP 37.2; O2SAT 97
--- NOTE | 2024-05-17 17:45 | ED.UPPEXIN ---
HPI - Extremity Injury (Upper) General Chief Complaint: Extremity Injury, Upper Stated Complaint: INJURED L WRIST Time Seen by Provider: 05/17/24 17:40 Source: patient and RN notes reviewed Mode of arrival: ambulatory Limitations: no limitations History of Present Illness HPI narrative: Patient presents today complaining of left wrist pain. Two weeks ago she fell out of her bed onto an outstretched hand and has had pain ever since. Denies numbness or tingling. Describes the pain as burning. Currently rates her pain 7/10 and has been taking Aleve or ibuprofen with mild relief. Pain increases with movement. She has been wearing a wrist splint with minimal relief. Related Data Home Medications Medication Instructions Recorded Confirmed duloxetine 20 mg capsule,delayed 20 mg PO DAILY 01/04/21 05/17/24 release olanzapine 10 mg tablet 10 mg PO QPM 01/04/21 05/17/24 atorvastatin 20 mg tablet 20 mg PO DAILY 06/05/23 05/17/24 fluticasone propionate 50 50 mcg intranasal DAILY 06/05/23 05/17/24 mcg/actuation nasal spray,suspension gabapentin 100 mg capsule 100 mg PO DIRECTED 06/05/23 05/17/24 lithium carbonate 450 mg 900 mg PO DIRECTED 06/05/23 05/17/24 tablet,extended release montelukast 10 mg tablet 10 mg PO DAILY 06/05/23 05/17/24 trazodone 150 mg tablet 150 mg PO DAILY 06/05/23 05/17/24 empagliflozin 10 mg tablet 10 mg PO DAILY 09/28/23 05/17/24 (Jardiance) Allergies Allergy/AdvReac Type Severity Reaction Status Date / Time ibuprofen Allergy Unknown Unknown Verified 05/17/24 17:38 bupropion AdvReac Unknown dizzy, Verified 05/17/24 17:38 lightheaded red dye AdvReac Unknown Nausea and Verified 05/17/24 17:38 Vomiting haloperidol [From Haldol] AdvReac Unknown Verified 05/17/24 17:38 naproxen AdvReac Unknown Verified 05/17/24 17:38 Review of Systems Review of Systems: CONSTITUTIONAL: Denies body aches, fever, chills, or sweats. EYES: Denies visual changes, redness, or discharge. ENT: Denies rhinorrhea, congestion, sore throat, or otalgia. CARDIOVASCULAR: Denies chest pain, palpitations, or edema. RESPIRATORY: Denies cough or dyspnea. GASTROINTESTINAL: Denies abdominal pain, nausea, vomiting, or diarrhea. GENITOURINARY: Denies dysuria or hematuria. SKIN: Denies rash, itching, or wounds. MUSCULOSKELETAL: Denies back pain, or myalgia.+ left wrist pain NEUROLOGIC: Denies headache, numbness, tingling, or weakness. PSYCH: Denies depression or anxiety. PMFSH Past Medical History Medical History Bipolar disorder, unspecified Depression H/O borderline personality disorder History of posttraumatic stress disorder (PTSD) Mixed hyperlipidemia due to type 2 diabetes mellitus Type 2 diabetes mellitus without complications Patient was diagnosed in 2019. Surgical History Surgical History No pertinent past surgical history Family History Family History Other Asthma Depression Diabetes mellitus Social History Social History Smoking packs per day: 0.5 Smoking cigarettes per day: 10.0 Years smoked: 10 Smoking pack-years: 5.00 Smoking status: Current every day smoker Tobacco type: cigarettes Alcohol intake: never Substance use: never Substance use type: prescription drug Gender identity (if verbalized by the patient): Female Comments At time of signature, I have reviewed and agree with nursing past medical, surgical, social and family history unless otherwise noted. Please see nursing chart for further information. There is no relevant family history pertinent to the presenting complaint Exam Narrative: GENERAL: Well-appearing, well-nourished, and in no acute distress. HEAD: Normocephalic, atraumatic. EYES: EOMI. No
== END 2024-05-17 17:52 | disposition home or self-care (01) ==
PROVIDERS: Emergency Provider Nurse Practitioner; PCP Internal Medicine
DX: S69.92XA Unspecified injury of left wrist, hand and finger(s), initial encounter (principal); W06.XXXA Fall from bed, initial encounter; F17.210 Nicotine dependence, cigarettes, uncomplicated; E78.2 Mixed hyperlipidemia; E11.9 Type 2 diabetes mellitus without complications; F31.9 Bipolar disorder, unspecified; Z79.84 Long term (current) use of oral hypoglycemic drugs
CPT/HCPCS: 73110; 99213; G0463

== ENCOUNTER 2024-09-07 16:55 | Emergency (ER) | payer OTHER, SELFPAY ==
--- NOTE | ~2024-09-07 | XR_ITS ---
EXAM: XR forearm LT 2V DATE: 09/07/2024 17:45 HISTORY: pain, swelling, fall . COMPARISON: X-ray wrist same date. FINDINGS: Normal mineralization. No fracture or dislocation. No lytic or blastic lesion. Joint space s are maintained. No erosion or periosteal change. Posterior soft tissue swelling. IMPRESSION: No acute osseous finding in the left forearm. Reviewed, dictated and finalized at location K. SCALER
--- NOTE | ~2024-09-07 | XR_ITS ---
EXAM: XR wrist LT min 3V DATE: 09/07/2024 17:14 HISTORY: fall 09/04, PAIN AND BRUISING TO LT WRIST . COMPARISON: None available. FINDINGS: Normal mineralization. No fracture or dislocation. No lytic or blastic lesion. Joint space s are maintained. No erosion or periosteal change. Soft tissues within normal limits. IMPRESSION: No acute osseous finding in the left wrist. Reviewed, dictated and finalized at location K. ICAL SYSTEMS ANALYST
[2024-09-07 16:58] VITALS: BP 149/92; PULSE 85; RESP 16; TEMP 36.6; O2SAT 98
--- NOTE | 2024-09-07 17:35 | ED_ITS ---
HPI - Extremity Injury (Upper) General Chief Complaint: Extremity Injury, Upper Stated Complaint: left arm pain Time Seen by Provider: 09/07/24 17:08 Source: patient Mode of arrival: ambulatory Limitations: no limitations History of Present Illness HPI narrative: This is a 43-year-old female that presents to the emergency department for left wrist injury. Sustained last night. Reports her dog pulled on the leash and she fell down a couple of stairs. Landing on her left wrist. Reports bruising and pain to the area. She does report she hit her head. She did not lose consciousness. She is not on anticoagulation. Denies headaches. Denies decreased range of motion or numbness. Related Data Home Medications Medication Instructions Recorded Confirmed duloxetine 20 mg capsule,delayed 20 mg PO DAILY 01/04/21 05/17/24 release olanzapine 10 mg tablet 10 mg PO QPM 01/04/21 05/17/24 atorvastatin 20 mg tablet 20 mg PO DAILY 06/05/23 05/17/24 fluticasone propionate 50 50 mcg intranasal DAILY 06/05/23 05/17/24 mcg/actuation nasal spray,suspension gabapentin 100 mg capsule 100 mg PO DIRECTED 06/05/23 05/17/24 lithium carbonate 450 mg 900 mg PO DIRECTED 06/05/23 05/17/24 tablet,extended release montelukast 10 mg tablet 10 mg PO DAILY 06/05/23 05/17/24 trazodone 150 mg tablet 150 mg PO DAILY 06/05/23 05/17/24 empagliflozin 10 mg tablet 10 mg PO DAILY 09/28/23 05/17/24 (Jardiance) Allergies Allergy/AdvReac Type Severity Reaction Status Date / Time ibuprofen Allergy Unknown Unknown Verified 09/07/24 17:03 bupropion AdvReac Unknown dizzy, Verified 09/07/24 17:03 lightheaded red dye AdvReac Unknown Nausea and Verified 09/07/24 17:03 Vomiting haloperidol [From Haldol] AdvReac Unknown Verified 09/07/24 17:03 naproxen AdvReac Unknown Verified 09/07/24 17:03 Review of Systems Review of Systems: CONSTITUTIONAL: Denies fever MUSCULOSKELETAL: Reports joint pain, and myalgia. NEUROLOGIC: Denies numbness, or weakness. All systems reviewed & are unremarkable except as noted in HPI and below PMFSH Past Medical History Medical History Bipolar disorder, unspecified Depression H/O borderline personality disorder History of posttraumatic stress disorder (PTSD) Mixed hyperlipidemia due to type 2 diabetes mellitus Type 2 diabetes mellitus without complications Patient was diagnosed in 2019. Surgical History Surgical History No pertinent past surgical history Family History Family History Other Asthma Depression Diabetes mellitus Social History Social History Smoking packs per day: 0.5 Smoking cigarettes per day: 10.0 Years smoked: 10 Smoking pack-years: 5.00 Smoking status: Current every day smoker Tobacco type: cigarettes Alcohol intake: never Substance use: never Substance use type: prescription drug Gender identity (if verbalized by the patient): Female Exam Narrative: GENERAL: Well-appearing, well-nourished, and in no acute distress. HEAD: Normocephalic. Abrasion to the forehead EYES: EOMI. CHEST: Clear to auscultation. No respiratory distress. No wheezes rales or rhonchi HEART: Regular rate and rhythm. No murmur heard. Normal peripheral pulses. EXTREMITIES: Normal range of motion. Mild edema and bruising to the left wris t/forearm. Normal DP pulse. Normal sensation SKIN: Warm, dry, no rash. NEURO: No focal deficits. Alert and oriented x3. Normal gait PSYCH: Normal mood and affect Course Course Emergency Course: Patient updated on workup and agrees with plan of care Vital Signs Vital signs: Vital Signs Temperature 98 F 09/07/24 16:58 Pulse Rate 85 09/07/24 16:58 Respiratory Rate 16 09/07/24 16:58 Blood Pressure 149/92 H 09/07/24 16:58 Pulse Oximetry 98 09/07/24 16:58 Oxygen Delivery Room Air 09/07/24 16:58 Temperature 98 F 09/07/24 16:58 Pulse Rate 85 09/07/24 16:58 Respiratory Rate 16 09/07/24 16:58 Blood Pressure 149/92 H 09/07/24 16:58 Pulse Oximetry 98 09/07/24 16:58 Oxygen Delivery Room Air 09/07/24 16:58 MDM - Extremity Injury (Upper) MDM Narrative Medical decision making narrative: Patient presents to the emergency department for left wrist pain after an injury last night. She is neurovascularly intact. Left wrist x-ray and forearm x-rays are without acute osseous abnormalities. Patient updated on her workup and agrees with plan of care. She is to follow up with primary provider. She was given warnings to return to the ER Differential Diagnosis Differential diagnosis: Likely sprain and strain of wrist, fracture of wrist and other (contusion) Imaging Data Radiologist's impression: ITS Impressions Wrist X-Ray 09/07/24 17:23 IMPRESSION: No acute osseous finding in the left wrist. Forearm X-Ray 09/07/24 17:50 IMPRESSION: No acute osseous finding in the left forearm. Critical Care Time Critical Care Time Critical Care Time: No Discharge Plan Discharge Clinical Impression: Contusion Qualifiers: Encounter type: initial encounter Contusion area: forearm Laterality: left Qualified Code(s): S50.12XA - Contusion of left forearm, initial encounter Patient Disposition: Home, Self-Care Condition: Stable Instructions: Contusion in Adults (ED) Additional Instructions: Return to the ER if you experience fever, redness and swelling of your extremity, numbness or any other symptoms that are concerning to you Ice and elevate extremity. Pain medication as needed and directed. Follow up with your doctor for further care. Prescriptions: No Action lithium carbonate 450 mg tablet extended release 900 mg PO DIRECTED trazodone 150 mg tablet 150 mg PO DAILY montelukast 10 mg tablet 10 mg PO DAILY gabapentin 100 mg capsule 100 mg PO DIRECTED fluticasone propionate 50 mcg/actuation spray,suspension 50 mcg INTRANASAL DAILY atorvastatin 20 mg tablet 20 mg PO DAILY Jardiance 10 mg tablet 10 mg PO DAILY duloxetine 20 mg capsule,delayed release(DR/EC) 20 mg PO DAILY olanzapine 10 mg tablet 10 mg PO QPM metformin 1,000 mg tablet 1,000 mg PO BID 30 Days Qty: 60 2RF Follow-up/Referrals: Derek Gleason MD [Primary Care Provider] -
[2024-09-07] MEDS: KETOROLAC 30 MG/ML VIAL (*BKC) IM (17:40)
[2024-09-07 18:30] VITALS: BP 140/90; PULSE 87; RESP 16; O2SAT 97
== END 2024-09-07 18:44 | disposition home or self-care (01) ==
PROVIDERS: Emergency Provider Physician Assistant; PCP Internal Medicine
DX: S50.12XA Contusion of left forearm, initial encounter (principal); E11.69 Type 2 diabetes mellitus with other specified complication; E78.2 Mixed hyperlipidemia; F17.210 Nicotine dependence, cigarettes, uncomplicated; F31.9 Bipolar disorder, unspecified; F43.10 Post-traumatic stress disorder, unspecified; F60.3 Borderline personality disorder; Z79.84 Long term (current) use of oral hypoglycemic drugs; Z79.899 Other long term (current) drug therapy; W10.9XXA Fall (on) (from) unspecified stairs and steps, initial encounter; Y93.K1 Activity, walking an animal
CPT/HCPCS: 73090; 73110; 96372; 99283; J1885

== ENCOUNTER 2025-03-10 16:43 | Emergency (ER) | payer OTHER, SELFPAY ==
--- NOTE | ~2025-03-10 | XR_ITS ---
EXAM: XR forearm LT 2V DATE: 03/10/2025 17:29 HISTORY: injury, pain to lateral forearm . COMPARISON: 09/07/2024. FINDINGS: Normal mineralization. No fracture or dislocation. No lytic or blastic lesion. Joint space s are maintained. No erosion or periosteal change. Soft tissues within normal limits. IMPRESSION: No acute osseous finding in the left forearm. Reviewed, dictated and finalized at location K.
[2025-03-10 16:58] VITALS: BP 121/80; PULSE 91; RESP 16; TEMP 36.7; O2SAT 98
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
== END 2025-03-10 17:53 | disposition home or self-care (01) ==
DX: S59.812A Other specified injuries left forearm, initial encounter (principal); W22.8XXA Striking against or struck by other objects, initial encounter; E11.9 Type 2 diabetes mellitus without complications; Z79.84 Long term (current) use of oral hypoglycemic drugs; E78.2 Mixed hyperlipidemia; F31.9 Bipolar disorder, unspecified
CPT/HCPCS: 73090; 99213; G0463

== ENCOUNTER 2025-04-14 13:36 | Emergency (ER) | payer OTHER, SELFPAY ==
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
[2025-04-14 13:43] VITALS: BP 148/84; PULSE 95; RESP 16; TEMP 36.8; O2SAT 95
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
== END 2025-04-14 14:33 | disposition home or self-care (01) ==
PROVIDERS: Emergency Provider Nurse Practitioner; PCP Nurse Practitioner
DX: S50.12XA Contusion of left forearm, initial encounter (principal); V48.5XXA Car driver injured in noncollision transport accident in traffic accident, initial encounter; E78.2 Mixed hyperlipidemia; E11.9 Type 2 diabetes mellitus without complications; Z79.85 Long-term (current) use of injectable non-insulin antidiabetic drugs; Z79.84 Long term (current) use of oral hypoglycemic drugs; F31.9 Bipolar disorder, unspecified; F17.210 Nicotine dependence, cigarettes, uncomplicated
CPT/HCPCS: 73090; 99213; G0463

== ENCOUNTER 2025-07-12 08:09 | Emergency (ER) | payer OTHER, SELFPAY ==
[2025-07-12 08:15] VITALS: BP 145/88; PULSE 108; RESP 16; TEMP 36.9; O2SAT 99
--- NOTE | 2025-07-12 08:32 | ED.GENADULT ---
HPI - General Adult General Chief complaint: Extremity Injury, Upper Stated complaint: L Arm Pain Time Seen by Provider: 07/12/25 08:32 Source: patient, RN notes reviewed and old records reviewed Mode of arrival: ambulatory Limitations: no limitations History of Present Illness HPI narrative: 44-year-old year old female presents to the [facility] with continued left arm pain. Patient was seen and evaluated on April 14 for pain to the arm. X-ray was negative. 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 And that irritates her arm. Patient has full range of motion. Positive radial pulse. Capillary refill under 2 seconds. Patient requesting a work note so she does not have to do any heavy lifting and would like 2 days off. Discussed that she has to follow-up with her primary care provider for the modification to work. Currently wearing a wrist brace. Treatments prior to arrival: other (Brace) Related Data Home Medications ?Medication ?Instructions ?Recorded ?Confirmed ?Last Taken ?Type duloxetine 20 mg capsule,delayed 20 mg PO DAILY 01/04/21 07/12/25 Unknown History release olanzapine 10 mg tablet 10 mg PO QPM 01/04/21 07/12/25 Unknown History atorvastatin 20 mg tablet 20 mg PO DAILY 06/05/23 04/14/25 Unknown History fluticasone propionate 50 50 mcg intranasal DAILY 06/05/23 04/14/25 Unknown History mcg/actuation nasal spray,suspension gabapentin 100 mg capsule 100 mg PO DIRECTED 06/05/23 07/12/25 Unknown History lithium carbonate 450 mg 900 mg PO DIRECTED 06/05/23 07/12/25 Unknown History tablet,extended release montelukast 10 mg tablet 10 mg PO DAILY 06/05/23 07/12/25 Unknown History trazodone 150 mg tablet 150 mg PO DAILY 06/05/23 07/12/25 Unknown History empagliflozin 10 mg tablet 10 mg PO DAILY 09/28/23 07/12/25 Unknown History (Jardiance) cetirizine 10 mg tablet 10 mg PO DAILY 03/10/25 07/12/25 Unknown History semaglutide 0.25 mg or 0.5 mg (2 2 mg subcut WEEKLY 04/14/25 07/12/25 Unknown History mg/3 mL) subcutaneous pen injector (Ozempic) atorvastatin 10 mg tablet mg 07/12/25 Unknown History cyclobenzaprine 5 mg tablet mg 07/12/25 Unknown History duloxetine 30 mg capsule,delayed mg PO 07/12/25 Unknown History release Allergies Allergy/AdvReac Type Severity Reaction Status Date / Time ibuprofen Allergy Unknown Unknown Verified 07/12/25 08:29 bupropion AdvReac Unknown dizzy, Verified 07/12/25 08:29 lightheaded red dye AdvReac Unknown Nausea and Verified 07/12/25 08:29 Vomiting haloperidol (From Haldol) AdvReac Unknown Verified 07/12/25 08:29 naproxen AdvReac Unknown Verified 07/12/25 08:29 Review of Systems Review of Systems: All systems reviewed & are unremarkable except as noted in HPI and below Constitutional: Constitutional: Reports no additional constitutional complaints Musculoskeletal: Musculoskeletal: Reports as per HPI Integumentary/Breasts: Skin/Breast: Reports system reviewed and no additional complaints, except as docu PMFSH Past Medical History Medical History History of posttraumatic stress disorder (PTSD) H/O borderline personality disorder Mixed hyperlipidemia due to type 2 diabetes mellitus Type 2 diabetes mellitus without complications Patient was diagnosed in 2019. Bipolar disorder, unspecified Depression Surgical History Surgical History No pertinent past surgical history Family History Family History Other Asthma Depression Diabetes mellitus Social History Social History Smoking packs per day: 0.5 Smoking cigarettes per day: 10.0 Years smoked: 10 Smoking pack-years: 5.00 Smoking status: Current every day smoker Tobacco type: cigarettes Alcohol intake: never Substance use: never Substance use type: prescription drug Gender identity (if verbalized by the patient): Female Comments At the time of my signature, I reviewed and agree with the nursing past medical, surgical, social, and family history. There is no relevant family history pertinent to the patient complaint. Exam Const: General: cooperative, healthy appearing, comfortable, no acute distress, well developed, alert and well nourished Nutritional Appearance: well nourished Orientation/consciousness: patient oriented x3 Limitations: no limitations HENMT: Head: normal to inspection Mouth: Yes Normal oral and palatal mucosa present, Yes lip normal, Yes tongue normal and Yes moist mucous membranes Eyes: General: appearance normal, both eyes and all related structures Alignment and Position: alignment normal Neck: Neck: normal visual inspection, full ROM, no lymphadenopathy and no meningeal signs Chest: Chest palpation & inspection: normal inspection of the chest Resp: Effort & Inspection: normal respiratory effort and able to speak in complete sentences Cardio: Rate: regular rate Skin: General skin exam: normal color and no rashes or lesions noted Neuro: General: patient oriented x3, gait normal, moves all extremities and no meningeal signs Cognition (Neuro): normal cognition Speech: normal speech Gait exam (Neuro): Normal gait present Extrem: General: normal to inspection, full ROM, capillary refill normal and normal gait Left upper extremity: full ROM, elbow/forearm tenderness, normal ROM and distal pulses intact; no swelling, no unusual warmth, no abrasions, no lacerations, no ecchymosis, no foreign bodies and no penetrating wound, wrist normal to inspection, normal ROM, normal vascular exam and radial pulse present; no tenderness and no swelling and hand normal to inspection, normal capillary refill, neuromotor exam normal Details: wrist extension normal, thumb opposition normal, thumb IP flexion normal, thumb ADduction normal and fingers 2-5 ABduction normal, tendon exam normal Location: of all digits, of the thumb, of the 2nd digit, of the 3rd digit, of the 4th digit and of the 5th digit, vascular exam radial pulse present and normal capillary refill and normal ROM of fingers Elbow/forearm/wrist images:  1. Reports tenderness without bruising, swelling. No erythema. No rashes. Has full range of motion Psych: Appearance: grossly normal and well kempt Mental Status: mental status grossly normal Speech and movement: Normal speech and movement present and Clear speech present Affect: normal affect Attitude: cooperative Course Course Level of Care: Express Care Visit Vital Signs Vital signs: Vital Signs Temperature 98.4 F 07/12/25 08:15 Pulse Rate 108 H 07/12/25 08:15 Respiratory Rate 16 07/12/25 08:15 Blood Pressure 145/88 H 07/12/25 08:15 Pulse Oximetry 99 07/12/25 08:15 Oxygen Delivery Room Air 07/12/25 08:15 Temperature 98.4 F 07/12/25 08:15 Pulse Rate 108 H 07/12/25 08:15 Respiratory Rate 16 07/12/25 08:15 Blood Pressure 145/88 H 07/12/25 08:15 Pulse Oximetry 99 07/12/25 08:15 Oxygen Delivery Room Air 07/12/25 08:15 Reviewed Medical Decision Making MDM Narrative Medical decision making narrative: Patient sitting in exam room. Patient is nontoxic, vitals are stable. Patient presents with continued arm pain. Negative x-ray from March. No new injury. Patient requesting work notes for 2 days off and modification of work. Discussed we can give 2 days off for today and tomorrow, modification of work has to come from her primary care provider. Discharge instructions reviewed with patient, as well as provided in writing per nursing staff. The instructions also include specific and strict return/GO TO THE ER as well as f/u information. All questions have been answered, and the patient deny any further questions with discharge and discharge plan. Some parts of this dictation were generated by voice recognition software and may contain typographical and/or grammatical inaccuracies. Differential Diagnosis Differential Diagnosis: Muscle sprain, strain, contusion Medical Records Medical records reviewed: Yes I reviewed the external patient's medical records. Vital Signs Vital Signs: Vital Signs Temperature 98.4 F 07/12/25 08:15 Pulse Rate 108 H 07/12/25 08:15 Respiratory Rate 16 07/12/25 08:15 Blood Pressure 145/88 H 07/12/25 08:15 Pulse Oximetry 99 07/12/25 08:15 Oxygen Delivery Room Air 07/12/25 08:15 Temperature 98.4 F 07/12/25 08:15 Pulse Rate 108 H 07/12/25 08:15 Respiratory Rate 16 07/12/25 08:15 Blood Pressure 145/88 H 07/12/25 08:15 Pulse Oximetry 99 07/12/25 08:15 Oxygen Delivery Room Air 07/12/25 08:15 Reviewed Lab Data Lab results reviewed: Yes I reviewed the patient's lab results. Labs: Reviewed Critical Care Time Critical Care Time Critical Care Time: No Discharge Plan Discharge Clinical Impression: Left wrist sprain Qualifiers: Encounter type: subsequent encounter Wrist sprain location: unspecified location Qualified Code(s): S63.502D - Unspecified sprain of left wrist, subsequent encounter Patient Disposition: Home Condition: Stable Instructions: Antibiotic Form, Wrist Sprain (ED) Additional Instructions: Ice should be applied to help reduce swelling. It can be used for 20 to 30 minutes, every 2-3 hours while awake. Do not apply ice directly to your skin. A wrist brace or wrist support should be worn during the day, not at night You can alternate ibuprofen 600mg and Tylenol 650mg every 4 hours as needed for pain Please schedule a follow-up visit with your personal physician for further evaluation and treatment within 2 weeks especially if symptoms persist. Today your blood pressure was 145/88 we recommend you follow-up with your primary care provider to have this rechecked within 2 weeks For new or worsening symptoms go directly to the emergency room Patient Language: Yi Prescriptions: No Action cetirizine 10 mg tablet 10 mg PO DAILY Ozempic 0.25 mg or 0.5 mg (2 mg/3 mL) pen injector 2 mg SUBCUT WEEKLY atorvastatin 10 mg tablet cyclobenzaprine 5 mg tablet duloxetine 30 mg capsule,delayed release(DR/EC) PO lithium carbonate 450 mg tablet extended release 900 mg PO DIRECTED trazodone 150 mg tablet 150 mg PO DAILY montelukast 10 mg tablet 10 mg PO DAILY gabapentin 100 mg capsule 100 mg PO DIRECTED fluticasone propionate 50 mcg/actuation spray,suspension 50 mcg INTRANASAL DAILY atorvastatin 20 mg tablet 20 mg PO DAILY Jardiance 10 mg tablet 10 mg PO DAILY duloxetine 20 mg capsule,delayed release(DR/EC) 20 mg PO DAILY olanzapine 10 mg tablet 10 mg PO QPM metformin 1,000 mg tablet 1,000 mg PO BID 30 Days Qty: 60 2RF Follow-up/Referrals: Katharina,Xenai Magdaleno APRN [Primary Care Provider, Unknown] - 1 Week Stand Alone Forms: Work/School Release IP Time of Disposition: 08:45
== END 2025-07-12 09:05 | disposition home or self-care (01) ==
PROVIDERS: Emergency Provider Nurse Practitioner; PCP Nurse Practitioner
DX: S63.502D Unspecified sprain of left wrist, subsequent encounter (principal); X58.XXXD Exposure to other specified factors, subsequent encounter; E11.9 Type 2 diabetes mellitus without complications; Z79.84 Long term (current) use of oral hypoglycemic drugs; Z79.85 Long-term (current) use of injectable non-insulin antidiabetic drugs; E78.2 Mixed hyperlipidemia; F31.9 Bipolar disorder, unspecified; F17.210 Nicotine dependence, cigarettes, uncomplicated
CPT/HCPCS: 99212; G0463

== ENCOUNTER 2025-08-23 19:30 | Emergency (ER) | payer OTHER, SELFPAY ==
--- NOTE | ~2025-08-23 | XR_ITS ---
Examination: XR forearm LT 2V Clinical History: fall in parking lot Comparison: 04/14/2025 Technique: 2 views left forearm Findings/impression: 1. No fracture. Reviewed, dictated and finalized at location R.
--- NOTE | 2025-08-23 19:40 | ED.GENADULT ---
HPI - General Adult General Chief complaint: Extremity Injury, Upper Stated complaint: fall, left arm Time Seen by Provider: 08/23/25 19:40 Source: patient Mode of arrival: ambulatory Limitations: no limitations History of Present Illness HPI narrative: 44-year-old female patient presents to [facility] with complaints of left wrist pain. Patient states that she slipped and fell in a parking lot this evening. Patient states that she is not able to move the wrist area. Denies any pain to the elbow or shoulder. Denies hitting her head or lost consciousness. Related Data Home Medications ?Medication ?Instructions ?Recorded ?Confirmed ?Last Taken ?Type fluticasone propionate 50 50 mcg intranasal DAILY 06/05/23 04/14/25 Unknown History mcg/actuation nasal spray,suspension gabapentin 100 mg capsule 100 mg PO DIRECTED 06/05/23 07/12/25 Unknown History lithium carbonate 450 mg 900 mg PO DIRECTED 06/05/23 07/12/25 Unknown History tablet,extended release montelukast 10 mg tablet 10 mg PO DAILY 06/05/23 07/12/25 Unknown History empagliflozin 10 mg tablet 10 mg PO DAILY 09/28/23 07/12/25 Unknown History (Jardiance) cetirizine 10 mg tablet 10 mg PO DAILY 03/10/25 07/12/25 Unknown History atorvastatin 10 mg tablet mg 07/12/25 Unknown History duloxetine 30 mg capsule,delayed mg PO 07/12/25 Unknown History release olanzapine 20 mg tablet mg 08/23/25 Unknown History penicillin V potassium 500 mg mg 08/23/25 Unknown History tablet semaglutide 1 mg/dose (4 mg/3 mL) mg subcut 08/23/25 Unknown History subcutaneous pen injector (Ozempic) trazodone 100 mg tablet mg 08/23/25 Unknown History Allergies Allergy/AdvReac Type Severity Reaction Status Date / Time ibuprofen Allergy Unknown Unknown Verified 08/23/25 19:50 bupropion AdvReac Unknown dizzy, Verified 08/23/25 19:50 lightheaded red dye AdvReac Unknown Nausea and Verified 08/23/25 19:50 Vomiting haloperidol (From Haldol) AdvReac Unknown Verified 08/23/25 19:50 naproxen AdvReac Unknown Verified 08/23/25 19:50 Review of Systems Review of Systems: CONSTITUTIONAL: Denies fever, chills, or sweats. EYES: Denies visual changes, redness, or discharge. ENT: Denies rhinorrhea, congestion, sore throat, or otalgia. CARDIOVASCULAR: Denies chest pain, palpitations, or edema. RESPIRATORY: Denies cough or dyspnea. GASTROINTESTINAL: Denies abdominal pain, nausea, vomiting, or diarrhea. GENITOURINARY: Denies dysuria or hematuria. SKIN: Denies rash or itching. MUSCULOSKELETAL: Denies back pain, joint pain, or myalgia. Positive left wrist pain. NEUROLOGIC: Denies headache, numbness, or weakness. PSYCHIATRIC: Denies anxiety or depression. [facility] Past Medical History Medical History History of posttraumatic stress disorder (PTSD) H/O borderline personality disorder Mixed hyperlipidemia due to type 2 diabetes mellitus Type 2 diabetes mellitus without complications Patient was diagnosed in 2019. Bipolar disorder, unspecified Depression Surgical History Surgical History No pertinent past surgical history Family History Family History Other Asthma Depression Diabetes mellitus Social History Social History Smoking packs per day: 0.5 Smoking cigarettes per day: 10.0 Years smoked: 10 Smoking pack-years: 5.00 Smoking status: Current every day smoker Tobacco type: cigarettes Alcohol intake: never Substance use: never Substance use type: prescription drug Gender identity (if verbalized by the patient): Female Comments At the time of my signature I agree with nursing past medical history, surgical, social, and family history. There is no relevant family history pertinent to the presenting complaint. Exam Narrative: GENERAL: Well-appearing, well-nourished, and in no acute distress. HEAD: Normocephalic, atraumatic. EYES: PERRLA and EOMI. ENT: Nares clear, no rhinorrhea or epistaxis. Mucous membranes moist. NECK: Supple. No lymphadenopathy CHEST: Clear to auscultation. No respiratory distress. HEART: Regular rate and rhythm. No murmur heard. Normal peripheral pulses. ABDOMEN: Soft, nontender, nondistended, normal active bowel sounds. EXTREMITIES: The L wrist is without obvious asymmetry or deformity when compared to the R wrist. No surface trauma, open wounds, Obvious swelling and obvious deformity to the left wrist. No overlying erythema or warmth. No bony crepitus or focal area Of tenderness noted to the ulnar and radial side of the left wrist.. No scaphoid fullness or tenderness to direct palpation or axial load. Unable to perform flex/extension, ulnar/radial deviation. Motor/sensory function of ulnar, radial, median nerves intact. Ulnar and radial pulses intact. unable to assess Phalen's/Tinel's sign. unable to assessFinkelstein test. SKIN: Warm, dry, no rash. NEURO: No focal deficits. Alert and oriented x3. Course Course Level of Care: Express Care Visit Reevaluation(s) Reevaluation #1: Saw free done by nurse practitioner. No obvious fracture noted it to in the x-ray. Plan of care for patient is to Ronye wrap and encouraged icing for the next 24 hours pretty aggressively. Discussed with her that we will call her tomorrow if the radiology read shows a fracture otherwise taking Tylenol and ibuprofen for pain as needed. Date: 08/23/25 Time: 20:17 Vital Signs Vital signs: Vital signs reviewed. Medical Decision Making MDM Narrative Medical decision making narrative: plan of care patient's x-ray the left wrist to assess for any acute fracture. I will reassess patient once this has resulted. Differential Diagnosis Differential Diagnosis: Differential diagnosis: Fracture, ligament injury, scaphoid fracture, sprains, tendinitis, carpal tunnel syndrome, DeQuervain's tenosynovitis Critical Care Time Critical Care Time Critical Care Time: No Discharge Plan Discharge Clinical Impression: Left wrist sprain Patient Disposition: Home Condition: Stable Instructions: Antibiotic Form, Wrist Sprain (ED) Additional Instructions: we will call you in the morning if the x-ray shows and fracture as per the radiologist read. Ice to the area 20-30 minutes 4-6 times a day Elevate above heart Elastic wrap or orthopedic splint as directed for comfort for the next 5-7 days Tylenol for lesser pain Ibuprofen regularly for the next 2-3 days for the inflammation Follow up with your primary care provider if the condition is not improving within 1 week or sooner if the Condition worsens with numbness, tingling, decrease sensation with weakness to seek ER. Patient Language: Chadian Prescriptions: No Action cetirizine 10 mg tablet 10 mg PO DAILY atorvastatin 10 mg tablet duloxetine 30 mg capsule,delayed release(DR/EC) PO lithium carbonate 450 mg tablet extended release 900 mg PO DIRECTED montelukast 10 mg tablet 10 mg PO DAILY gabapentin 100 mg capsule 100 mg PO DIRECTED fluticasone propionate 50 mcg/actuation spray,suspension 50 mcg INTRANASAL DAILY Jardiance 10 mg tablet 10 mg PO DAILY penicillin V potassium 500 mg tablet trazodone 100 mg tablet olanzapine 20 mg tablet Ozempic 1 mg/dose (4 mg/3 mL) pen injector SUBCUT Follow-up/Referrals: Katharina,Xenia Mgadaleno APRN [Primary Care Provider, Unknown] Stand Alone Forms: Work/School Release IP Time of Disposition: 20:15
== END 2025-08-23 20:20 | disposition home or self-care (01) ==
PROVIDERS: Emergency Provider Nurse Practitioner Family; PCP Nurse Practitioner
DX: S63.502A Unspecified sprain of left wrist, initial encounter (principal); W01.0XXA Fall on same level from slipping, tripping and stumbling without subsequent striking against object, initial encounter; E11.9 Type 2 diabetes mellitus without complications; Z79.84 Long term (current) use of oral hypoglycemic drugs; Z79.85 Long-term (current) use of injectable non-insulin antidiabetic drugs; E78.2 Mixed hyperlipidemia; F31.9 Bipolar disorder, unspecified; F17.210 Nicotine dependence, cigarettes, uncomplicated
CPT/HCPCS: 73090; 99213; G0463